=== PATIENT | female | born 1960 | race Caucasian/White ===

== ENCOUNTER 2017-02-13 12:15 | Emergency (ER) | payer BC, SELFPAY | END 2017-02-13 13:20 | disposition home or self-care (01) | PROVIDERS: Emergency Provider Nurse Practitioner Family; Family Provider Internal Medicine Adolescent Medicine; Visit Provider Nurse Practitioner Family | DX: S63.501A Unspecified sprain of right wrist, initial encounter (principal); W18.09XA Striking against other object with subsequent fall, initial encounter | CPT/HCPCS: 29125; 73110; 99202 ==

== ENCOUNTER → 2018-03-21 17:41 | Outpatient (CLI) | payer OTHER, SELFPAY ==
[2018-03-21 18:31] LABS: Basophils % 0.3 % (0.1-2.0); Eosinophils # 0.1 K/mm3 (0.0-0.4); Eosinophils % 3.2 % (0.1-12.0); Hematocrit 36.3 % (37.0-47.0); Hemoglobin 11.9 g/dL (12.2-16.2); Lymphocytes # 1.4 K/mm3 (0.7-4.5); Lymphocytes % 33.6 % (10-50); Mean Corpuscular HGB Conc 32.8 g/dL (31.8-35.4); Mean Corpuscular Hemoglobin 29.8 pg (27.0-31.2); Mean Corpuscular Volume 90.8 fl (81-99); Mean Platelet Volume 6.9 fl (7.4-10.4); Monocytes # 0.2 K/mm3 (0.1-1.0); Monocytes % 5.7 % (1.7-9.3); Neutrophils # 2.4 K/mm3 (1.8-7.8); Neutrophils % 57.2 % (37.0-80.0); Platelet Count 257 K/mm3 (142-424); Red Cell Distribution Width 13.1 % (11.5-17.5); White Blood Count 4.2 K/mm3 (4.8-10.8)
[2018-03-21 18:55] LABS: Hemoglobin A1C 5.8 % (0.0-7.0)
[2018-03-21 19:16] LABS: Alanine Aminotransferase 24 U/L (12-78); Albumin Level 3.6 gm/dL (3.4-5.0); Alkaline Phosphatase 102 U/L (46-116); Anion Gap 15.1 mEq/L (5-15); Aspartate Amino Transferase 20 U/L (15-37); Bilirubin,Total 0.6 mg/dL (0.2-1.0); Blood Urea Nitrogen 9 mg/dL (7-18); Calcium 8.9 mg/dL (8.5-10.1); Carbon Dioxide 28 mmol/L (21.0-32.0); Chloride 103 mmol/L (98-107); Chol/HDL Ratio 3.2 (1-3.5); Cholesterol 184 mg/dL (140-200); Creatinine,Serum 0.89 mg/dL (0.55-1.02); Estimated Glomerular Filt Rate 65 ml/min (>60); Free Thyroxine Index 2.6 ug/dL (5.93-13.13); GFR (African American) 79 ML/MIN (>60); Globulin 3.5 gm/dl (1.3-3.2); Glucose 99 mg/dL (74-106); HDL Cholesterol 58 mg/dL (29-89); LDL Cholesterol 113 mg/dL (0-130); Potassium 4.1 mmoL/L (3.5-5.1); Sodium 142 mmol/L (136-145); T4 (Thyroxine) 8.5 ug/dl (4.7-13.3); Thyroid Stimulating Hormone 2.14 uIU/ml (0.358-3.740); Total Protein,Serum 7.1 gm/dL (6.4-8.2); Triglycerides 65 mg/dL (30-200); Triiodothryronine (T3) Uptake 31 % (31-39); VLDL Cholesterol 13 mg/dL (0-40)
[2018-03-21 19:32] LABS: Erythrocyte Sedimentation Rate 37 mm/hr (0-30)
[2018-03-24 07:03] LABS: Vitamin B12 241 pg/mL (232-1245)
[2018-03-26 13:03] LABS: Vitamin D 25 Hydroxy 12.1 ng/mL (30.0-100.0)
== END ==
PROVIDERS: Visit Provider Internal Medicine Adolescent Medicine
DX: E78.5 Hyperlipidemia, unspecified (principal); E53.8 Deficiency of other specified B group vitamins; E55.9 Vitamin D deficiency, unspecified; R73.9 Hyperglycemia, unspecified; K50.10 Crohn's disease of large intestine without complications; R00.2 Palpitations
CPT/HCPCS: 36415; 80053; 80061; 82607; 82652; 83036; 84436; 84443; 84479; 85025; 85651

== ENCOUNTER → 2018-05-14 14:12 | Outpatient (CLI) | payer OTHER, SELFPAY ==
--- NOTE | 2018-05-14 14:24 | MR_ITS ---
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 FINDINGS: No midline shift, mass effect, intracranial hemorrhage, or hydrocephalus is evident. The cerebellopontine angles, cerebellum, and brainstem are unremarkable. No evidence of acute infarction. There are scattered periventricular and subcortical small T2 white matter hyperintensities which may be due to ischemic gliotic change from microvascular disease. The skull base has an unremarkable appearance as do the petrous bones. No mastoid effusion or sinus air-fluid level. The pituitary, optic chiasm, and craniocervical junction are unremarkable. There is an area of increased T1 and T2 signal of the right frontal bone measuring 1 cm possibly due to hemangioma IMPRESSION: 1. No acute intracranial findings. 2. Scattered periventricular and subcortical T2 white matter hyperintensities which may related to ischemic gliotic change from microvascular disease. Differential diagnosis would include migraine headache. Demyelinating process felt to be less likely based on imaging characteristics but not totally excluded.
== END ==
PROVIDERS: PCP Internal Medicine Adolescent Medicine; Visit Provider Internal Medicine Adolescent Medicine
DX: G50.0 Trigeminal neuralgia (principal)
CPT/HCPCS: 70551

== ENCOUNTER → 2018-11-14 11:49 | Outpatient (CLI) | payer OTHER, SELFPAY ==
--- NOTE | 2018-11-14 12:15 | XR_ITS ---
PROCEDURE: XR KNEE LT 3V CLINICAL INDICATION: LT ANTERIOR KNEE PAIN COMPARISON: No exams were available for comparison FINDINGS: No fracture or dislocation. No lytic or blastic change. There is normal mineralization. The joint spaces are well-preserved. No significant degenerative/arthritic changes. No erosive changes evident. Other findings:Minimal calcification noted overlying the quadriceps tendon on the lateral view. If this is indeed within the tendon then, it could be due to prior injury. IMPRESSION: No acute finding. Calcification overlies the quadriceps tendon and could be related to prior injury Dictated by: Diomedes Mathis MD 11/14/2018 14:57 Electronically signed by Diomedes Mathis MD in [place] 11/14/2018 14:57
--- NOTE | 2018-11-14 12:15 | XR_ITS ---
PROCEDURE: XR SHOULDER LT MIN 2V CLINICAL INDICATION: ACUTE LT SHOULDER PAIN COMPARISON: [id number] VIEW COMP.-RT from 03/09/2014 FINDINGS: The clavicle is intact and the AC joint appears normal. The humeral head and glenoid are normal and there are no soft tissue calcifications. IMPRESSION: No acute findings. Dictated by: Dr. Alexey Cooper MD 11/14/2018 14:[address] Alexey Cooper MD in [place] 11/14/2018 14:51
[2018-11-14 13:02] LABS: Basophils % 0.6 % (0.1-2.0); Eosinophils # 0.1 K/mm3 (0.0-0.4); Eosinophils % 2.9 % (0.1-12.0); Hematocrit 35.2 % (37.0-47.0); Hemoglobin 11.2 g/dL (12.2-16.2); Lymphocytes # 1.7 K/mm3 (0.7-4.5); Lymphocytes % 33.4 % (10-50); Mean Corpuscular HGB Conc 31.8 g/dL (31.8-35.4); Mean Corpuscular Hemoglobin 29.1 pg (27.0-31.2); Mean Corpuscular Volume 91.4 fl (81-99); Mean Platelet Volume 7.2 fl (7.4-10.4); Monocytes # 0.3 K/mm3 (0.1-1.0); Monocytes % 5.3 % (1.7-9.3); Neutrophils # 2.9 K/mm3 (1.8-7.8); Neutrophils % 57.8 % (37.0-80.0); Platelet Count 280 K/mm3 (142-424); Red Blood Count 3.85 M/mm3 (4.20-5.40); White Blood Count 4.9 K/mm3 (4.8-10.8)
[2018-11-14 13:51] LABS: Alanine Aminotransferase 21 U/L (12-78); Albumin Level 3.4 gm/dL (3.4-5.0); Alkaline Phosphatase 88 U/L (46-116); Aspartate Amino Transferase 17 U/L (15-37); Bilirubin,Total 0.4 mg/dL (0.2-1.0); Blood Urea Nitrogen 12 mg/dL (7-18); C-Reactive Protein 0.9 mg/dL (0.0-0.9); Carbon Dioxide 27 mmol/L (21.0-32.0); Chloride 107 mmol/L (98-107); Creatinine,Serum 0.88 mg/dL (0.55-1.02); Estimated Glomerular Filt Rate 66 ml/min (>60); GFR (African American) 79 ML/MIN (>60); Globulin 3.4 gm/dl (1.3-3.2); Glucose 85 mg/dL (74-106); Sodium 141 mmol/L (136-145); Total Protein,Serum 6.8 gm/dL (6.4-8.2)
[2018-11-14 14:38] LABS: Erythrocyte Sedimentation Rate 27 mm/hr (0-30)
[2018-11-15 18:06] LABS: RA Latex Turbid. <10.0 IU/mL (0.0-13.9)
[2018-11-17 09:54] LABS: Anti-Cyclic Citrullinated Pept 41 units (0-19)
[2018-11-17 15:16] LABS: Anti-Centromere B Antibodies <0.2 AI (0.0-0.9); Anti-Jo-1 <0.2 AI (0.0-0.9); Anti-Smith Antibody <0.2 AI (0.0-0.9); Antichromatin Antibodies <0.2 AI (0.0-0.9); Antiscleroderma-70 Antibodies <0.2 AI (0.0-0.9); RNP Antibodies <0.2 AI (0.0-0.9); Sjogren's Anti-SS-A <0.2 AI (0.0-0.9); Sjogren's Anti-SS-B <0.2 AI (0.0-0.9)
[2018-11-18 10:31] LABS: Anti-DNA (DS) Ab Qn <1 IU/mL (0-9)
== END ==
PROVIDERS: Visit Provider Internal Medicine Adolescent Medicine
DX: M12.9 Arthropathy, unspecified (principal); M25.512 Pain in left shoulder; M25.562 Pain in left knee
CPT/HCPCS: 36415; 73030; 73562; 80053; 85025; 85651; 86140; 86200; 86225; 86235; 86431

== ENCOUNTER → 2019-01-30 16:15 | Outpatient (CLI) | payer OTHER, SELFPAY ==
--- NOTE | 2019-01-30 | XR_ITS ---
PROCEDURE: XR CHEST 2V CLINICAL HISTORY: CHEST PAIN Right-sided chest pain with nonproductive cough COMPARISON: No exams were available for comparison FINDINGS: The cardiomediastinal silhouette and pulmonary vascularity are within normal limits. The lungs are clear without infiltrates, suspicious nodules, or pleural effusions. There is calcified granuloma in the left mid lung. There are degenerative changes of the thoracic spine. IMPRESSION: No acute findings. Dictated by: Diomedes Mathis MD 01/30/2019 16:39 Electronically signed by Diomedes Mathis MD in [place] 01/30/2019 16:39
== END ==
PROVIDERS: PCP Internal Medicine Adolescent Medicine; Visit Provider Internal Medicine Adolescent Medicine
DX: R07.9 Chest pain, unspecified (principal)
CPT/HCPCS: 71046

== ENCOUNTER 2020-04-23 19:20 | Emergency (ER) | payer OTHER, SELFPAY ==
[2020-04-23 19:23] VITALS: BP 184/109; PULSE 94; RESP 16; TEMP 36.7; O2SAT 100; BMI 32.3
[2020-04-23 19:42] VITALS: BMI 32.4
--- NOTE | 2020-04-23 19:42 | CT_ITS ---
PROCEDURE: CT HEAD/BRAIN WO CON CLINICAL INDICATION: fall Right-sided head pain COMPARISON: MR BRAINWO MR head/brain wo con from 05/14/2018 TECHNIQUE: Axial images obtained. All CT scans at the facility use one or more dose reduction, viz: automated exposure control, ma/kV adjustment per patient size (including targeted exams where dose is matched to indication, i.e. head), or iterative reconstruction technique. FINDINGS: No midline shift, mass effect, intracranial hemorrhage, hydrocephalus, or extra-axial fluid collection is evident. There are no significant atrophic changes identified and there are no significant chronic ischemic white matter changes. The calvarium has an unremarkable appearance except for a focal radiolucency right frontal bone just to the right of the midline unchanged from the previous MRI exam and probably secondary to a hemangioma or possibly epidermoid. No mastoid effusion. No sinus air-fluid level. IMPRESSION: No acute intracranial finding Dictated by: Dr. Alexey Cooper MD 04/23/2020 21:33 Dr. Alexey Cooper MD in [place] 04/23/2020 21:33
--- NOTE | 2020-04-23 19:42 | XR_ITS ---
PROCEDURE: XR CHEST PORTABLE CLINICAL HISTORY: fall COMPARISON: CR XR CHEST 2V from 01/30/2019 FINDINGS: The cardiomediastinal silhouette and pulmonary vascularity are within normal limits. The lungs are clear without infiltrates, suspicious nodules, or pleural effusions. There is a stable tiny calcified granuloma left mid lung field. No acute bony abnormalities. There are mild multilevel degenerate changes midthoracic spine. IMPRESSION: No acute findings. Dictated by: Dr. Alexey Cooper MD 04/23/2020 22:11 Dr. Alexey Cooper MD in [place] 04/23/2020 22:11
--- NOTE | 2020-04-23 19:42 | CT_ITS ---
PROCEDURE: CT CERVICAL SPINE WO CON CLINICAL INDICATION: fall COMPARISON: No exams were available for comparison TECHNIQUE: Axial images obtained with sagittal and coronal reformats. All CT scans at the facility use one or more dose reduction, viz: automated exposure control, ma/kV adjustment per patient size (including targeted exams where dose is matched to indication, i.e. head), or iterative reconstruction technique. Axial spiral CT scanning performed of the cervical spine beginning at the base of the skull and continuing to the upper T-spine. 3-D multiplanar reconstruction with 3-D manipulation of volumetric data set in image rendering was completed by the radiologist and/or technologist with the supervision of the radiologist on independent workstation. FINDINGS: There is mild reversal of the normal cervical lordosis suggesting muscle spasm. There is mild disc space narrowing at the C4-5, C5-6 and C6-7 levels with minor anterior and posterior osteophytic spurring noted. This results in minor central canal anterior-posterior compromise at the C5-6 and C6-7 levels. The prevertebral soft tissues are normal and the odontoid is normal other than mild arthritic change. IMPRESSION: Findings of muscle spasm with mild multilevel degenerate changes lower cervical spine, no acute bony pathology identified Dictated by: Dr. Alexey Cooper MD 04/24/2020 09:40 Dr. Alexey Cooper MD in [place] 04/24/2020 09:40
--- NOTE | 2020-04-23 19:42 | XR_ITS ---
PROCEDURE: XR PELVIS 1-2V CLINICAL INDICATION: fall COMPARISON: No exams were available for comparison TECHNIQUE: XR Pelvis AP View FINDINGS: No fracture or dislocation is evident. No significant degenerative change. No lytic or blastic change. IMPRESSION: No acute findings. Dictated by: Dr. Alexey Cooper MD 04/23/2020 22:12 Dr. Alexey Cooper MD in [place] 04/23/2020 22:12
--- NOTE | 2020-04-23 19:44 | CT_ITS ---
PROCEDURE: CT LUMBAR SPINE WO CON CLINICAL HISTORY: fall COMPARISON: No exams were available for comparison TECHNIQUE: Axial images obtained with sagittal and coronal reformats. All CT scans at the facility use one or more dose reduction, viz: automated exposure control, ma/kV adjustment per patient size (including targeted exams where dose is matched to indication, i.e. head), or iterative reconstruction technique. FINDINGS: There is normal curvature and alignment. All lumbar vertebrae appear intact and disc spaces are well maintained throughout. The transverse processes all appear intact. There is mild diffuse bulging of the annulus fibrosus at the L4-5 level.. IMPRESSION: No acute finding Dictated by: Dr. Alexey Cooper MD 04/24/2020 09:25 Dr. Alexey Cooper MD in [place] 04/24/2020 09:25
--- NOTE | 2020-04-23 20:23 | HMH.EDGENADL ---
ED Disposition Clinical Impression: Traumatic injury of back Disposition: Home, Self-Care Condition on Discharge: Good Referrals: Fabián Pearl MD [Primary Care Provider] - - Critical Care Critical Care Time: No Attestation: On 04/23/20, the high probability of a clinically significant, sudden or life threatening deterioration of the following system(s) required my full and direct attention, intervention and personal management. The time I documented below is in addition to time spent performing reported procedures but includes the following listed in this critical care notation. Medical Decision Making - Medical Records Medical records reviewed: Yes: I reviewed the patient's medical records. - Michael Inquiry Pt receiving controlled substance: No Vital Signs: 04/23/20 19:23 Temperature 98.1 F Temperature Source Oral Pulse Rate [Left Radial] 94 H Respiratory Rate 16 Blood Pressure [Right Arm] 184/109 H Blood Pressure Mean [Right Arm] 134 Blood Pressure Source [Right Arm] Automatic Cuff Blood Pressure Position [Right Arm] Supine 02 Sat by Pulse Oximetry 100 Oxygen Delivery Method Room Air Orders (Tests/Meds): ORDERS Category Date Time Status CT cervical spine wo con Stat Cat Scan 04/23/20 19:[address] head/brain wo con Stat Cat Scan 04/23/20 19:[address] lumbar spine wo con Stat Cat Scan 04/23/20 19:44 Taken XR chest portable Stat Exams 04/23/20 19:42 Taken XR pelvis 1-2V Stat Exams 04/23/20 19:42 Taken Medical Decision Narrative: In summary 59-year-old female presents for falls. Patient's vital signs are stable. Patient was able to ambulate into the ER. Patient had scans of her head, C-spine, L-spine performed as well as x-rays of her chest and pelvis. These were negative for fracture or intracranial hemorrhage. Patient had decreased visual acuity in her right eye, no indications of traumatic iritis, hyphema, no concern for open globe, patient has no pain no concern for corneal abrasion or corneal ulcer. Patient has no obvious injuries to her eye. Ultrasound was performed of eye and no posterior vitreous hemorrhage was found or retinal detachment. Spoke with board layer who agrees to see patient tomorrow in his office. Patient will contact him in the morning. Patient amenable to plan. Discharged home. General Adult HPI - General Chief complaint: Fall Stated complaint: [id number] fell hit head, neck, lower back pain Time Seen by Provider: 04/23/20 21:00 Mode of Arrival: Ambulatory Limitations: No Limitations Description of Symptoms (Recalled from ER Triage Doc. by RN): Pt reports falling on ice this morning at 11am. Pt says she thinks she hit her head. She c/o lower back pain when ambulating and SILVERIO that comes and goes . No blurred vision, vomiting, dizziness ro injuries reported. - History of Present Illness HPI narrative: 59 yo f presenting after fall. Pt fell from standing, possibly hit her head, no loss of consciousness, patient has pain in her head, complains of visual changes in her right eye, pain in her back as well. Patient not on blood thinners, patient fall occurred several hours prior to arrival. Denies any difficulty with ambulation. Presents with at bedside. Patient states that her vision has been more blurry since after the fall, mostly in her right eye, involving all visual felder. Patient wears glasses and has them with her today. - Related Data Home Medications Medication Instructions Recorded Confirmed Duloxetine HCl [Cymbalta 30mg 30 mg PO DAILY 04/23/20 04/23/20 capsule] Propranolol HCl [Inderal 20mg 20 mg PO BID 04/23/20 04/23/20 Tablet] Sertraline HCl [Zoloft 100mg 100 mg PO DAILY 04/23/20 04/23/20 tablet] Allergies Allergy/AdvReac Type Severity Reaction Status Date / Time codeine [CODEINE] Allergy Mild Unverified 02/26/17 14:25 Iodine and Iodide Containing Allergy Mild Unverified 02/26/17 14:25 Prod
[2020-04-23 21:23] VITALS: BP 138/89; PULSE 73; RESP 16; TEMP 36.8; O2SAT 98
== END 2020-04-23 21:25 | disposition home or self-care (01) ==
PROVIDERS: Emergency Provider Emergency Medicine; PCP Internal Medicine Adolescent Medicine
DX: S39.92XA Unspecified injury of lower back, initial encounter (principal); S16.1XXA Strain of muscle, fascia and tendon at neck level, initial encounter; W00.0XXA Fall on same level due to ice and snow, initial encounter; Y92.014 Private driveway to single-family (private) house as the place of occurrence of the external cause
CPT/HCPCS: 70450; 71045; 72125; 72131; 72170; 99282

== ENCOUNTER → 2020-08-15 16:53 | Outpatient (CLI) | payer OTHER, SELFPAY | PROVIDERS: Visit Provider Nurse Practitioner Family | DX: L02.219 Cutaneous abscess of trunk, unspecified (principal); L03.319 Cellulitis of trunk, unspecified | CPT/HCPCS: 87070; 87077; 87186; 87205 ==

== ENCOUNTER 2020-09-16 14:04 | Outpatient (RCR) | payer OTHER, BC, SELFPAY | END 2020-09-16 14:10 | disposition home or self-care (01) | LOC: PT 14:04 | PROVIDERS: PCP Internal Medicine Adolescent Medicine; Visit Provider Nurse Practitioner Family | DX: M54.2 Cervicalgia (principal); M54.81 Occipital neuralgia; S06.0X9S Concussion with loss of consciousness of unspecified duration, sequela; W00.9XXS Unspecified fall due to ice and snow, sequela | CPT/HCPCS: 97163 ==

== ENCOUNTER 2021-04-21 23:58 | Emergency (ER) | payer BC, SELFPAY ==
[2021-04-21 23:59] VITALS: BP 158/94; PULSE 98; RESP 16; TEMP 36.7; O2SAT 100; BMI 29.1
--- NOTE | 2021-04-22 00:23 | CT_ITS ---
PROCEDURE INFORMATION: Exam: CT Abdomen And Pelvis Without Contrast Exam date and time: 04/22/2021 12:23 AM Age: 60 years old Clinical indication: Constipation; Prior surgery; Surgery date: 6+ months; Surgery type: Some of small bowel and large bowel removed due to chrons disease. Also appendix TECHNIQUE: Imaging protocol: Computed tomography of the abdomen and pelvis without contrast. Radiation optimization: All CT scans at this facility use at least one of these dose optimization techniques: automated exposure control; mA and/or kV adjustment per patient size (includes targeted exams where dose is matched to clinical indication); or iterative reconstruction. COMPARISON: ABDPELW/O CT ABD PELVIS W/O CONTRAST 01/03/2015 8:11 AM FINDINGS: Liver: Normal. No mass. Gallbladder and bile ducts: Normal. No calcified stones. No ductal dilation. Pancreas: Normal. No ductal dilation. Spleen: Normal. No splenomegaly. Adrenal glands: Normal. No mass. Kidneys and ureters: Normal. No hydronephrosis. Stomach and bowel: Large amount of stool in the rectum. Liquid fecal contents of the colon suggests diarrhea. Appendix: No evidence of appendicitis. Intraperitoneal space: Unremarkable. No free air. No significant fluid collection. Vasculature: Unremarkable. No abdominal aortic aneurysm. Lymph nodes: Unremarkable. No enlarged lymph nodes. Urinary bladder: Unremarkable as visualized. Reproductive: Calcified fibroids. Bones/joints: Unremarkable. No acute fracture. Soft tissues: There is a healed anterior abdominal wall incision. Other findings: Stigmata of old granulomatous disease. IMPRESSION: Large amount of stool in the rectum. Please exclude fecal impaction.
--- NOTE | 2021-04-22 01:20 | HMH.EDNVD ---
ED Disposition Clinical Impression: Fecal impaction in rectum Disposition: Home, Self-Care Condition on Discharge: Good Instructions: DI for Constipation Additional Instructions: fluids and call pcp for follow up Prescriptions: polyethylene glycoL 3350 [Miralax 17gm Packet] 17 gm PO DAILY #30 packet Transmission Status: Pending to [id number] Referrals: Fabián Pearl MD [Primary Care Provider] - - Critical Care Critical Care Time: No Attestation: On 04/21/21, the high probability of a clinically significant, sudden or life threatening deterioration of the following system(s) required my full and direct attention, intervention and personal management. The time I documented below is in addition to time spent performing reported procedures but includes the following listed in this critical care notation. Medical Decision Making - Medical Records Medical records reviewed: Yes: I reviewed the patient's medical records. - Michael Inquiry Pt receiving controlled substance: No Vital Signs: 04/21/21 23:59 Temperature 98.0 F Temperature Source Oral Pulse Rate [Right Radial] 98 H Respiratory Rate 16 Blood Pressure [Right Arm] 158/94 H Blood Pressure Mean [Right Arm] 115 Blood Pressure Source [Right Arm] Automatic Cuff Blood Pressure Position [Right Arm] Sitting 02 Sat by Pulse Oximetry 100 Oxygen Delivery Method Room Air - Lab Data Lab results reviewed: Yes: I reviewed the patient's lab results. Lab Results 04/22/21 01:36: WBC 11.1 H, RBC 4.39, Hgb 13.3, Hct 42.0, MCV 95.6, MCH 30.2, MCHC 31.6 L, RDW 13.2, Plt Count 312, MPV 7.5, Neut % (Auto) 87.6 H, Lymph % (Auto) 8.1 L, [place] % (Auto) 2.7, Eos % (Auto) 0.4, Baso % (Auto) 1.3, Neut # (Auto) 9.7 H, Lymph # (Auto) 0.9, [place] # (Auto) 0.3, Eos # (Auto) 0.0, Baso # (Auto) 0.1, Total Counted 100, Neutrophils % (Manual) 82 H, Band Neutrophils % 9.0 H, Lymphocytes % (Manual) 8 L, Monocytes % (Manual) 1 L, Platelet Estimate Normal, Hypochromasia 1+, ESR 23 04/22/21 01:36: Sodium 139, Potassium 4.3, Chloride 105, Carbon Dioxide 25, Anion Gap 13.3, BUN 10, Creatinine 0.70, Estimated Creat Clear 73, Estimated GFR 85, Est GFR ( Amer) 103, Glucose 128 H, Calcium 9.1, Total Bilirubin 0.5, AST 38 H, ALT 27, Alkaline Phosphatase 95, C-Reactive Protein 4.8 H, Total Protein 7.7, Albumin 4.6, Globulin 3.1, Albumin/Globulin Ratio 1.5, Procalcitonin 0.047, Thyroxine (T4) 10.8 Result diagrams: 04/22/21 01:36 04/22/21 01:36 Orders (Tests/Meds): ED MEDICATIONS Discontinued Medications Generic Name Dose Route Start Last Admin Trade Name Freq PRN Reason Stop Dose Admin Ondansetron HCl 4 mg 04/22/21 01:38 Ondansetron 4mg/2ml Vial IV 04/22/21 01:39 ONCE ONE Ondansetron HCl 4 mg 04/22/21 01:40 04/22/21 01:42 Ondansetron 4mg Odt SL 04/22/21 01:41 4 mg ONCE ONE Administration ORDERS Category Date Time Status C-Reactive Protein Stat Lab 04/22/21 01:36 Results Comprehensive Metabolic Panel Stat Lab 04/22/21 01:36 Results Occult Blood,Stool Stat Lab 04/22/21 02:30 Ordered Procalcitonin Stat Lab 04/22/21 01:36 Results T4 (Thyroxine) Stat Lab 04/22/21 01:36 Results Thyroid Stimulating Hormone Stat Lab 04/22/21 01:36 Results - CT Data CT Scan: Abdomen, Pelvis Time Received: 02:[address] Reviewed: Yes: I have viewed the radiologist's interpretation Preliminary Findings: Abnormal (see report ) Medical Decision Narrative: stable labs and ct showed fecal impaction - able to disimpact pt and doing better Nausea/Vomiting/Diarrhea HPI - General Chief complaint: Abdominal Pain Stated complaint: constipated, has Crohns's disease Time Seen by Provider: 04/22/21 00:10 Mode of Arrival: Ambulatory Source of Information: Patient, Medical Record Limitations: No Limitations Description of Symptoms (Recalled from ER Triage Doc. by RN): Pt reports no BM for 8 days w/ N/V as well. She says she was taking narcotics after hav
[2021-04-22 01:42] LABS: Basophils # 0.1 K/mm3 (0-0.2); Basophils % 1.3 % (0.1-2.0); Eosinophils % 0.4 % (0.1-12.0); Hemoglobin 13.3 g/dL (12.2-16.2); Lymphocytes # 0.9 K/mm3 (0.7-4.5); Lymphocytes % 8.1 % (10-50); Mean Corpuscular HGB Conc 31.6 g/dL (31.8-35.4); Mean Corpuscular Hemoglobin 30.2 pg (27.0-31.2); Mean Corpuscular Volume 95.6 fl (81-99); Mean Platelet Volume 7.5 fl (7.4-10.4); Monocytes # 0.3 K/mm3 (0.1-1.0); Monocytes % 2.7 % (1.7-9.3); Neutrophils # 9.7 K/mm3 (1.8-7.8); Neutrophils % 87.6 % (37.0-80.0); Platelet Count 312 K/mm3 (142-424); Red Blood Count 4.39 M/mm3 (4.20-5.40); Red Cell Distribution Width 13.2 % (11.5-17.5); White Blood Count 11.1 K/mm3 (4.8-10.8)
[2021-04-22 01:46] LABS: MANUAL DIFFERENTIAL MANUAL DIFFERENTIAL (MANUAL DIFF)
[2021-04-22 01:57] LABS: Alanine Aminotransferase 27 U/L (12-78); Albumin Level 4.6 g/dl (3.5-5.0); Albumin/Globulin Ratio 1.5 (1.1-1.8); Alkaline Phosphatase 95 U/L (38-126); Anion Gap 13.3 mEq/L (5-15); Aspartate Amino Transferase 38 U/L (14-36); Bilirubin,Total 0.5 mg/dl (0.2-1.3); Blood Urea Nitrogen 10 mg/dl (7-17); Calcium 9.1 mg/dl (8.4-10.2); Carbon Dioxide 25 mmol/L (22.0-30.0); Chloride 105 mmol/L (98-107); Creatinine Clearance Estimated 73 mL/min (50-200); Estimated Glomerular Filt Rate 85 ml/min (>60); GFR (African American) 103 ML/MIN (>60); Globulin 3.1 g/dL (1.3-3.2); Glucose 128 mg/dl (74-100); Potassium 4.3 mmoL/L (3.5-5.1); Sodium 139 mmol/L (136-145); Total Protein,Serum 7.7 g/dl (6.3-8.2)
[2021-04-22 02:02] LABS: C-Reactive Protein 4.8 mg/L (0-4)
[2021-04-22 02:06] LABS: Lymphocytes % 8 % (10-50); Monocytes % 1 % (2-9); Neutrophils % 82 % (42-76); Total Cells Counted 100
[2021-04-22 02:07] LABS: Hypochromasia 1+; Platelet Estimate Normal
[2021-04-22 02:08] LABS: Erythrocyte Sedimentation Rate 23 mm/hr (0-30)
[2021-04-22 02:16] LABS: Procalcitonin 0.047 ng/mL (0.0-2.0); T4 (Thyroxine) 10.8 ug/dl (5.53-11.0)
[2021-04-22 02:30] LABS: Thyroid Stimulating Hormone 2.08 uIU/mL (0.465-4.68)
[2021-04-22 02:36] LABS: Occult Blood,Stool Positive (Negative)
[2021-04-22 02:52] VITALS: BP 158/94; PULSE 88; RESP 12; TEMP 36.9; O2SAT 99
== END 2021-04-22 02:56 | disposition home or self-care (01) ==
PROVIDERS: Emergency Provider Emergency Medicine; PCP Internal Medicine Adolescent Medicine
DX: K56.41 Fecal impaction (principal)
CPT/HCPCS: 36415; 74176; 80053; 82272; 84145; 84436; 84443; 85007; 85025; 85651; 86140; 99283; G0328

== ENCOUNTER → 2022-06-22 16:47 | Outpatient (CLI) | payer BC, SELFPAY ==
[2022-06-22 17:27] LABS: Basophils % 0.4 % (0.1-2.0); Eosinophils # 0.2 K/mm3 (0.0-0.4); Hematocrit 38.2 % (37.0-47.0); Hemoglobin 12.3 g/dL (12.2-16.2); Lymphocytes # 1.6 K/mm3 (0.7-4.5); Lymphocytes % 35.3 % (10-50); Mean Corpuscular HGB Conc 32.1 g/dL (31.8-35.4); Mean Corpuscular Hemoglobin 29.3 pg (27.0-31.2); Mean Corpuscular Volume 91.5 fl (81-99); Mean Platelet Volume 7.8 fl (7.4-10.4); Monocytes # 0.3 K/mm3 (0.1-1.0); Monocytes % 6.2 % (1.7-9.3); Neutrophils # 2.4 K/mm3 (1.8-7.8); Neutrophils % 54.1 % (37.0-80.0); Platelet Count 291 K/mm3 (142-424); Red Blood Count 4.18 M/mm3 (4.20-5.40); Red Cell Distribution Width 13.4 % (11.5-17.5); White Blood Count 4.4 K/mm3 (4.8-10.8)
[2022-06-22 17:44] LABS: Alanine Aminotransferase 16 U/L (12-78); Albumin Level 3.7 g/dl (3.5-5.0); Albumin/Globulin Ratio 1.3 (1.1-1.8); Alkaline Phosphatase 96 U/L (38-126); Anion Gap 7.6 mEq/L (5-15); Aspartate Amino Transferase 25 U/L (14-36); Bilirubin,Total 0.7 mg/dl (0.2-1.3); Blood Urea Nitrogen 11 mg/dl (7-17); Calcium 8.8 mg/dl (8.4-10.2); Carbon Dioxide 25 mmol/L (22.0-30.0); Chloride 107 mmol/L (98-107); Chol/HDL Ratio 3.2 (1-3.5); Cholesterol 177 mg/dl (140-200); Estimated Glomerular Filt Rate 72 ml/min (>60); GFR (African American) 87 ML/MIN (>60); Globulin 2.8 g/dL (1.3-3.2); Glucose 94 mg/dl (74-100); HDL Cholesterol 55 mg/dl (40-60); Potassium 3.6 mmoL/L (3.5-5.1); Sodium 136 mmol/L (136-145); Total Protein,Serum 6.5 g/dl (6.3-8.2); Triglycerides 82 mg/dl (30-150); VLDL Cholesterol 16 mg/dL (0-40)
[2022-06-22 17:55] LABS: Direct LDL Cholesterol 93.93 mg/dL (100-129)
[2022-06-22 18:00] LABS: T4 (Thyroxine) 7.3 ug/dl (5.53-11.0); Triiodothryronine (T3) Uptake 27 % (23.5-40.5)
[2022-06-22 18:01] LABS: 25-OH Vitamin D, Total 16.4 ng/mL (30-100)
[2022-06-22 18:14] LABS: Thyroid Stimulating Hormone 1.86 uIU/mL (0.465-4.68)
[2022-06-22 18:34] LABS: Vitamin B12 211 pg/mL (239-931)
[2022-06-22 18:48] LABS: Hemoglobin A1C 5.4 % (4.0-6.0)
== END ==
PROVIDERS: PCP Internal Medicine Adolescent Medicine; Visit Provider Internal Medicine Adolescent Medicine
DX: R73.9 Hyperglycemia, unspecified (principal); E78.5 Hyperlipidemia, unspecified; E53.8 Deficiency of other specified B group vitamins; E55.9 Vitamin D deficiency, unspecified
CPT/HCPCS: 36415; 80053; 80061; 82306; 82607; 83036; 84436; 84443; 84479; 85025

== ENCOUNTER 2023-04-08 16:31 | Emergency (ER) | payer BC, SELFPAY ==
[2023-04-08 18:00] VITALS: BP 173/81; PULSE 80; RESP 20; TEMP 36.8; O2SAT 98; BMI 30.8
--- NOTE | 2023-04-08 18:17 | EXP.UTC ---
Discharge Plan Disposition Patient Disposition: Home, Self-Care Condition: Good Prescriptions Prescriptions: New cefdinir 300 mg capsule 300 mg PO BID Qty: 20 0RF guaifenesin [Mucinex] 600 mg tablet extended release 12hr 600 mg PO BID PRN (Reason: cough) Qty: 20 0RF benzonatate 100 mg capsule 100 mg PO TID PRN (Reason: cough) Qty: 30 0RF No Action propranolol 20 MG tablet 20 mg PO BID duloxetine 30 MG capsule,delayed release(DR/EC) 30 mg PO DAILY aspirin 81 mg Tablet,Chewable 81 mg PO DAILY gabapentin 100 mg capsule 100 mg PO TID Patient Comments: TAKE 1 CAPSULE BY MOUTH THREE TIMES DAILY NEEDED Referrals Follow up/Referrals: Fabián Pearl MD [Primary Care Provider] - See instructions Activity Restrictions/Add. Instructions Additional Instructions/Restrictions: Start antibiotic today. Be sure to complete entire prescription even if feeling better Monitor temp. Tylenol every 4 hours as needed and / or ibuprofen every 6 hours as needed ( As long as your primary care physician has told you that it ok to take both. For fever/aches/pains ER if no less than 101 despite Tylenol or Motrin Humidifier/vaporizer or hot steamy shower Inhaler every 4-6 hours as needed like we discussed. If unsure how to use it, ask pharmacist to demonstrate how. Should help open airways and improve cough, wheezing, and shortness of breath Mucinex during the day for your cough and cough suppressant only at night. Be sure to drink lots of water. Insurance may not cover a prescriptions for mucinex. Might be cheaper to get 400mg tablets and take 2 tablet in the morning, mid-day and evening with lots of water. *Promethazine DM cough syrup will cause drowsiness. Use only at night. No driving, operating machinery or caring for small children after taking it *Tessalon Perles will not cause drowsiness but use at bedtime to help stop cough so that you may get some rest. *Start steroid today. Helps with inflammation therefore, cough and wheezing. Follow directions on the package. Reviewed side effects. Patient reports taking them before. Follow up IMMEDIATELY for new or worsening of symptoms OR no noticeable improvement over the next 48-72 hours. 911 immediately for any life threatening symptoms such as chest pain or difficulty breathing Clinical Impressions Clinical Impression: Bronchitis Instructions Patient Instructions: Acute Bronchitis Discharge ED Provider: [place]ricilla Fields [facility] [place] General Stated complaint: st cough fever chest congestion soa Mode of Arrival: Ambulatory Source of Information: Patient Limitations: No Limitations Time Seen by Provider: 04/08/23 18:17 Description of Symptoms (Recalled from Triage Doc. by RN): PATIENT C/O COUGH, CHEST HURTING WITH BREATHING, DIFFICULTY BREATHING, BACK PAIN, FEVER AT NIGHT, AND HEART RACING OCCASIONALLY X 5.5 WEEKS HEENT Symptoms (Recalled from RN notes): Yes Resp Symptoms (Recalled from RN notes): Yes Skin Symptoms (Recalled from RN notes): No MS Symptoms (Recalled from RN notes): No Functional Status (Recalled from RN notes): WNL History of Present Illness Provider Complaint: Patient states that she has been sick for about 5.5wks States that she has been having pain in her chest and back at times with breathing, at night feeling like she has fever and feeling like she cannot get a good breath, States that she has been caring for her father that has been ill and he recently so she came in today to get checked Denies productive cough Related Data Home Medications Medication Instructions Recorded Confirmed duloxetine 30 mg capsule,delayed 30 mg PO DAILY 04/23/20 04/08/23 release propranolol 20 mg tablet 20 mg PO BID 04/23/20 04/08/23 aspirin 81 mg chewable tablet 81 mg PO DAILY 04/08/23 04/08/23 gabapentin 100 mg capsule 100 mg PO TID 04/08/23 04/08/23 Previous Rx's Medication Instructions Recorded benzonatate 100 mg capsule 100 mg PO TID PRN cough #30 caps 04/08/23 cefdinir 300 mg capsule 300 mg PO BID #20 caps 04/08/23 guaifenesin 600 mg tablet, 600 mg PO BID PRN cough #20 tabs 04/08/23 extended release 12 hr (Mucinex) Allergies Allergy/AdvReac Type Severity Reaction Status Date / Time codeine [CODEINE] Allergy Mild Unverified 02/26/17 14:25 Iodine and Iodide Containing Allergy Mild Unverified 02/26/17 14:25 Produc [IODINE AND IODIDE CONTAINING PRODUC] pentazocine [From [facility]] Allergy Mild Unverified 02/26/17 14:25 Worker's Comp Is this a Worker's Comp case?: No [facility] Disclaimer: The information contained in this section may have been updated after the patient was seen, as this information can be updated by other users. Medical History (Updated 04/08/23 @ 20:04 by Pricilla Fields APRN) Anxiety Atrial fibrillation History of anemia Hypertension Migraine ROS Obtained: Yes All systems reviewed & no additional complaints except as documented and Yes Systems reviewed as appropriate & no additional complaints except as documented Constitutional Constitutional: Reports system reviewed and no additional complaints, except as documented, Reports as per HPI and Reports fever(s) (on and off worse at night) ENT Ears, Nose, Mouth, and Throat: Reports system reviewed and no additional complaints, except as documented, Reports as per HPI, Reports nasal congestion and Reports nasal discharge Cardiovascular Cardiovascular: Reports system reviewed and no additional complaints, except as documented, Reports as per HPI, Denies lightheadedness, Denies pedal edema and Reports other (hx of Afib) Respiratory Respiratory: Reports system reviewed and no additional complaints, except as documented, Reports as per HPI, Reports shortness of breath, Reports chest congestion, Reports cough, Reports pain on inspiration and Reports pain with cough Gastrointestinal Gastrointestingal: Reports system reviewed and no additional complaints, except as documented and as per HPI Physical Exam General General appearance: alert and in no apparent distress ENT ENT exam: Present mucous membranes moist Expanded ENT Exam Nose exam: Absent sinus tenderness Throat exam: Present normal inspection Respiratory Respiratory exam: Present normal lung sounds bilaterally; Absent respiratory distress or wheezes Cardiovascular Cardiovascular exam: Present irregular rhythm (hx afib) Neurological Exam Neurological exam: Present alert, oriented X3 and normal gait Medical Decision Making Michael Inquiry Pt receiving controlled substance: No Michael was queried for this patient: No Vital Signs: 04/08/23 18:00 Temperature 98.3 F Temperature Source Oral Pulse Rate [Left Brachial] 80 Respiratory Rate 20 Blood Pressure [Left Arm] 173/81 H Blood Pressure Mean [Left Arm] 111 Blood Pressure Source [Left Arm] Automatic Cuff Blood Pressure Position [Left Arm] Sitting 02 Sat by Pulse Oximetry 98 Oxygen Delivery Method Room Air Radiology Data #1: Image(s): Chest Image Reviewed: Yes I have reviewed radiologist's interpretation IMPRESSION: Bronchiectasis with peribronchial thickening. Findings compatible with mild changes of bronchitis. ECG Data Tracing #1: sinus rhythm with sinus arrhythymia ECG initial impression date: 04/08/23 ECG initial impression time: 18:49 Normal Sinus Rhythm: No Additional Comments: sinus rhythm with sinus arrythymia hx of afib
--- NOTE | 2023-04-08 18:34 | XR_ITS ---
PROCEDURE INFORMATION: Exam: XR Chest Exam date and time: 04/08/2023 7:08 PM Age: 62 years old Clinical indication: Cough; Additional info: Cough/chest congestion x 5 1/2 weeks TECHNIQUE: Imaging protocol: Radiologic exam of the chest. Views: 2 views. COMPARISON: CR XR CHEST PORTABLE 04/23/2020 8:06 PM FINDINGS: Lungs: Bronchiectasis with peribronchial thickening. Findings compatible with mild changes of bronchitis. Calcified granuloma left mid lung Pleural spaces: Unremarkable. No pleural effusion. No pneumothorax. Heart/Mediastinum: Unremarkable. No cardiomegaly. Bones/joints: Unremarkable. IMPRESSION: Bronchiectasis with peribronchial thickening. Findings compatible with mild changes of bronchitis.
--- NOTE | 2023-04-08 18:51 | ECG_ITS ---
APPROVED REPORT Exam: Resting ECG HR:77 bpm ECG Measurements Heart Rate 77 AXES QRSd 80 QRS 74 QT 340 T 60 QTc 371 Conclusion Sinus Rhythm Marked artifact limits interpretation ABNORMAL ECG UNCONFIRMED REPORT Electronically signed by : Fabián Pearl MD 04/09/2023 16:39:34
[2023-04-08 19:51] LABS: Troponin I < 0.01 ng/ml (0.00-0.034)
[2023-04-08 20:02] VITALS: BP 173/81; PULSE 80; RESP 20; TEMP 36.8; O2SAT 98
[2023-04-08] MEDS: LIDOCAINE 1% 5ML PF VIAL IM (20:05)
[2023-04-08] MEDS: cefTRIAXone 1GM VIAL 1 GM IM (20:05)
== END 2023-04-08 20:16 | disposition home or self-care (01) ==
PROVIDERS: Emergency Provider Nurse Practitioner; PCP Internal Medicine Adolescent Medicine
DX: J20.9 Acute bronchitis, unspecified (principal); I49.9 Cardiac arrhythmia, unspecified; R07.1 Chest pain on breathing; R06.02 Shortness of breath; R09.81 Nasal congestion; I10 Essential (primary) hypertension
CPT/HCPCS: 71046; 84484; 93005; 96372; 99204; 99212; G0463; J0696

== ENCOUNTER 2024-08-29 13:25 | Outpatient (CLI) | payer MEDICARE, BC, SELFPAY ==
[2024-08-29 14:03] LABS: Basophils % 0.8 % (0.1-2.0); Eosinophils # 0.2 Kmm3 (0.0-0.4); Eosinophils % 3.5 % (0.1-12.0); Hemoglobin 12.9 g/dL (12.2-16.2); Immature Granulocytes # 0.01 10^3uL; Immature Granulocytes % 0.2 %; Lymphocytes # 1.6 K/mm3 (0.7-4.5); Lymphocytes % 32.1 % (10-50); Mean Corpuscular HGB Conc 33.1 g/dL (31.8-35.4); Mean Corpuscular Hemoglobin 30.3 pg (27.0-31.2); Mean Corpuscular Volume 91.5 fl (81-99); Mean Platelet Volume 8.7 fl (7.4-10.4); Monocytes # 0.4 K/mm3 (0.1-1.0); Neutrophils # 2.7 K/mm3 (1.8-7.8); Neutrophils % 55.4 % (37.0-80.0); Nucleated Red Blood Cells # 0 10^3/uL; Nucleated Red Blood Cells % 0 %; Platelet Count 266 K/mm3 (142-424); Red Blood Count 4.26 M/mm3 (4.20-5.40); Red Cell Distribution Width 12.5 % (11.5-17.5); Red Cell Distribution Width-SD 41.7 fL; White Blood Count 4.9 K/mm3 (4.8-10.8)
[2024-08-29 14:24] LABS: Hemoglobin A1C 6.3 % (4.0-6.0)
[2024-08-29 14:31] LABS: Albumin Level 4.3 g/dl (3.5-5.0); Chloride 111 mmol/L (98-107); Sodium 141 mmol/L (136-145)
[2024-08-29 14:32] LABS: Potassium 4.1 mmoL/L (3.5-5.1)
[2024-08-29 14:34] LABS: Alanine Aminotransferase 21 U/L (12-78); Albumin/Globulin Ratio 1.3 (1.1-1.8); Alkaline Phosphatase 103 U/L (38-126); Anion Gap 9.1 mEq/L (5-15); Aspartate Amino Transferase 33 U/L (14-36); Bilirubin,Total 0.9 mg/dl (0.2-1.3); Blood Urea Nitrogen 11 mg/dl (7-17); Carbon Dioxide 25 mmol/L (22.0-30.0); Cholesterol 217 mg/dl (140-200); Estimated Glomerular Filt Rate 63 ml/min (>60); GFR (African American) 76 ML/MIN (>60); Globulin 3.3 g/dL (1.3-3.2); Iron 133 ug/dL (37-170); Total Protein,Serum 7.6 g/dl (6.3-8.2); Triglycerides 84 mg/dl (30-150); VLDL Cholesterol 17 mg/dL (0-40)
[2024-08-29 14:35] LABS: Calcium 9.8 mg/dl (8.4-10.2); Chol/HDL Ratio 3.1 (1-3.5); Glucose 95 mg/dl (74-100); HDL Cholesterol 70 mg/dl (40-60)
[2024-08-29 14:44] LABS: Total Iron Binding Capacity 357 ug/dL (265-497)
[2024-08-29 14:46] LABS: Direct LDL Cholesterol 103.63 mg/dL (100-129)
[2024-08-29 15:10] LABS: Ferritin 15.3 ng/ml (11.1-264)
== END 2024-08-29 23:59 | disposition home or self-care (01) ==
LOC: LAB 13:26
PROVIDERS: PCP Internal Medicine Adolescent Medicine; Visit Provider Internal Medicine Adolescent Medicine
DX: E78.5 Hyperlipidemia, unspecified (principal); E53.8 Deficiency of other specified B group vitamins; E55.9 Vitamin D deficiency, unspecified; R73.9 Hyperglycemia, unspecified
CPT/HCPCS: 36415; 80053; 80061; 82728; 83036; 83540; 83550; 85025